=== PATIENT | male | born 1995 | race Caucasian/White ===

== ENCOUNTER 2017-03-17 10:50 | Observation (INO) | payer OTHER ==
[~2017-03-17] VITALS: Ht 180.3 cm; Wt 64.5 kg
[2017-03-17 11:00] VITALS: Ht 180.3 cm; Wt 64.5 kg
[2017-03-17] MEDS ORDERED: ONDANSETRON INJ 2 MG/ML 2 ML VIAL IV STA (11:24)
[2017-03-17] MEDS ORDERED: MoRPHine SULFATE 4 MG/ML 1 ML CARP\\VIAL IV ONE (11:30)
[2017-03-17 11:41] LABS: BASO % 0.2 %; BASO ABS # 0.01 K/uL (0-0.2); EOS % 1.2 %; HEMATOCRIT 41.3 % (42-52); IG% 0.2 %; LYMPH % 14.3 %; LYMPH ABS # 0.83 K/uL (1.2-3.4); MEAN CELL VOLUME 65.6 fL (80-100); MEAN CORPUSCULAR HEMOGLOBIN 20.5 pg (25-34); MEAN CORPUSCULAR HGB CONC 31.2 g/dl (32-36); MONO % 9.1 %; PLATELET COUNT 171 K/uL (130-400)
[2017-03-17] MEDS ORDERED: CEFAZOLIN IV 2,000 MG/60 ML D5W IV ONE (11:45)
[2017-03-17 11:58] LABS: BLOOD UREA NITROGEN 13 mg/dl (7-18); CALCIUM 8.9 mg/dl (8.5-10.1); CARBON DIOXIDE 26 mmol/L (21-32); CHLORIDE 106 mmol/L (98-107); CREATININE 0.67 mg/dl (0.60-1.40); GLUCOSE 99 mg/dl (70-99); POTASSIUM 4.6 mmol/L (3.5-5.1); SODIUM 139 mmol/L (136-145)
[2017-03-17] MEDS ORDERED: CEFAZOLIN SOD 2000 MG in DEXTROSE 5% 50ML IV ONE (12:00)
--- NOTE | 2017-03-17 12:05 | EMERGENCY ROOM VISIT NOTE ---
History First contact with patient: 11:03 Chief Complaint: LACERATION/CUT (NON-SUTURE) Stated Complaint: LEFT HAND LACERATION Nursing Triage Summary: triage note: pt reports he cut his left hand on a saw mill saw at 0930 today. bloody drainage noted - unable to assess cut due to dressing on left hand. History of Present Illness The patient is a 22 year old male who presents to the Emergency Room with complaints of laceration to his left hand that occurred about 30 minutes prior to arrival. The patient is on rash and was working with a large table saw. The patient reached underneath the machine and suffered extensive laceration to his left hand. The patient is up-to-date on his tetanus as this was updated about 8 weeks ago. The patient is not diabetic and is otherwise healthy. He is having difficulty moving his left index finger. The bleeding is controlled with a pressure dressing. The patient has not had previous injury to this hand in the past. He rates his current discomfort a 7/10. Review of Systems More than 10 systems were reviewed and otherwise negative with the exception of history of present illness. Past Medical/Surgical History Medical Problems: (1) Laceration of left hand involving tendon No chronic medical disease Family History No pertinent family history Social History Smoking Status: Never Smoker Housing Status: lives with family Occupation Status: employed Current/Historical Medications No Active Prescriptions or Reported Meds Allergies Coded Allergies: No Known Allergies (Unverified , 03/17/17) Physical Exam Vital Signs Date Time Temp Pulse Resp B/P (MAP) Pulse Ox O2 Delivery O2 Flow Rate FiO2 03/17/17 15:51 37.5 97 16 133/72 99 03/17/17 14:46 75 141/57 100 Room Air 03/17/17 13:16 71 16 117/62 100 03/17/17 11:00 36.9 84 18 133/69 100 Room Air Physical Exam VITALS: Vitals are noted on the nurse's note and reviewed by myself. Vital signs stable. GENERAL: Well-developed, well-nourished, white male in moderate discomfort secondary to his stated complaint., HEART: Regular rate and rhythm without murmurs gallops or rubs. LUNGS: Clear to auscultation bilaterally without wheezes, rales or rhonchi. No retractions or accessory muscle use. MUSCULOSKELETAL: There is an extensive laceration to the dorsal aspect of the left hand. The laceration appears to be a C-shaped flap-like laceration extending from the base of the fourth digit to the base of the thumb. The laceration measures approximately 10 cm in length. There is obvious exposure of the extensor tendon to the left third and left fifth digits. The extensor tendon of the left second digit appears to be lacerated and the patient has decreased ability to extend against resistance of this digit. The joint capsule at the third MTP is exposed. The wound is grossly contaminated with a small arteriole bleed at the most proximal aspect. NEURO: Patient was alert and oriented to person place and time. CN II through XII grossly intact. Medical Decision & Procedures ER Provider Diagnostic Interpretation: LEFT HAND MIN 3 VIEWS ROUTINE CLINICAL HISTORY: 22 years-old Male presenting with Left hand lac. TECHNIQUE: Frontal, oblique, and lateral views of the left hand were obtained. COMPARISON: None. FINDINGS: Sensitivity of the examination is slightly limited due to patient positioning and the presence of an overlying plaster splint. Comminuted extra-articular fracture of the distal phalanx of the third finger. The distal interphalangeal joint of the third finger remains congruent. Distal fracture fragments are displaced 2 to 3 mm the base of the distal phalanx is spared. Additionally, osseous defect of the radial aspect of the mid to distal diaphysis of the second metacarpal subjacent to the presumed laceration, consistent with open fracture. Fracture fragment is not clearly identified. Radiocarpal and intercarpal articulations are grossly intact. IMPRESSION: 1. Open fracture of the mid to distal diaphysis of the radial aspect of the second metacarpal subjacent to the presumed laceration. Fracture fragment not clearly identified. 2. Comminuted extra articular fracture of the distal phalanx of the third finger with 2 to 3 mm of displacement of the distal fracture fragments. Laboratory Results 03/17/17 11:30 Red Blood Count 6.30, Mean Corpuscular Volume 65.6, Mean Corpuscular Hemoglobin 20.5, Mean Corpuscular Hemoglobin Concent 31.2, Neutrophils (%) (Auto) 75.0, Lymphocytes (%) (Auto) 14.3, Monocytes (%) (Auto) 9.1, Eosinophils (%) (Auto) 1.2, Basophils (%) (Auto) 0.2, Neutrophils # (Auto) 4.35, Lymphocytes # (Auto) 0.83, Monocytes # (Auto) 0.53, Eosinophils # (Auto) 0.07, Basophils # (Auto) 0.01 03/17/17 11:30 Test 03/17/17 11:30 03/17/17 15:44 White Blood Count 5.80 K/uL (4.8-10.8) Red Blood Count 6.30 M/uL (4.7-6.1) Hemoglobin 12.9 g/dL (14.0-18.0) Hematocrit 41.3 % (42-52) Mean Corpuscular Volume 65.6 fL (80-100) Mean Corpuscular Hemoglobin 20.5 pg (25-34) Mean Corpuscular Hemoglobin Concent 31.2 g/dl (32-36) Platelet Count 171 K/uL (130-400) Neutrophils (%) (Auto) 75.0 % Lymphocytes (%) (Auto) 14.3 % Monocytes (%) (Auto) 9.1 % Eosinophils (%) (Auto) 1.2 % Basophils (%) (Auto) 0.2 % Neutrophils # (Auto) 4.35 K/uL (1.4-6.5) Lymphocytes # (Auto) 0.83 K/uL (1.2-3.4) Monocytes # (Auto) 0.53 K/uL (0.11-0.59) Eosinophils # (Auto) 0.07 K/uL (0-0.5) Basophils # (Auto) 0.01 K/uL (0-0.2) RDW Standard Deviation 45.6 fL (36.4-46.3) RDW Coefficient of Variation 19.1 % (11.5-14.5) Immature Granulocyte % (Auto) 0.2 % Immature Granulocyte # (Auto) 0.01 K/uL (0.00-0.02) Ovalocytes 1+ Acanthocytes 1+ Anion Gap 7.0 mmol/L (3-11) Est Creatinine Clear Calc Drug Dose 159.1 ml/min Estimated GFR () > 150.0 Estimated GFR (Non- 137.4 BUN/Creatinine Ratio 20.0 (10-20) Calcium Level 8.9 mg/dl (8.5-10.1) Bedside Glucose 89 mg/dl (70-99) Medications Administered Medications (Trade) Dose Ordered Sig/Shira Route Start Time Stop Time Status Last Admin Dose Admin Morphine Sulfate (MoRPHine SULFATE INJ) 4 mg NOW ONCE IV 03/17/17 11:30 03/17/17 11:31 DC 03/17/17 11:35 4 MG Ondansetron HCl (Zofran Inj) 4 mg NOW STAT IV 03/17/17 11:24 03/17/17 11:27 DC 03/17/17 11:34 4 MG Cefazolin Sodium 2000 mg/Dextrose 60 ml @ 120 mls/hr 1200 ONCE IV 03/17/17 12:00 03/17/17 12:29 DC 03/17/17 11:55 120 MLS/HR Bacitracin (Bacitracin Inj) 50,000 units STK-MED ONCE .ROUTE 03/17/17 15:54 03/17/17 15:55 DC 03/17/17 15:54 50,000 UNITS Bacitracin (Bacitracin Inj) 50,000 units STK-MED ONCE .ROUTE 03/17/17 16:31 03/17/17 16:32 DC 03/17/17 16:31 50,000 UNITS Bupivacaine HCl (Marcaine 0.5% MPF Inj) 30 ml STK-MED ONCE .ROUTE 03/17/17 17:02 03/17/17 17:03 DC 03/17/17 17:02 19 ML ED Course Physical exam and history were performed. Nursing notes and EMR were reviewed. Patient appears to have suffered extensive laceration to his left hand with a power table saw just prior to arrival. He last ate around 5 AM this morning and he is up-to-date on his tetanus. IV access was established and basic labs were obtained. The patient was given IV morphine, IV Zofran, and IV Ancef. X- rays concerning for an open fracture of the left second metacarpal, which does correlate with the exam. The case was discussed with my attending physician, Dr Ace, as well as the on -call orthopedist, Dr. Sylvester. Dr. Sylvester will make arrangements for his partner Dr. Herndon to evaluate the patient. Dr Herndon was able to evaluate the patient here in the emergency department. The patient will be taken to the operating room for washout and closure. Please see Dr Herndon's dictation for further patient course and disposition. The patient did remain in stable condition until his transfer to the operating room suite. The chart was completed utilizing [employer] Speech Voice Recognition Software. Grammatical errors, random word insertions, pronoun errors, and incomplete sentences are an occasional consequence of this system due to software limitations, ambient noise, and hardware issues. Any formal questions or concerns about the content, text, or information contained within the body of this dictation should be directly addressed to the provider for clarification. . Medical Decision Differential diagnosis includes, but is not limited to: Sprain, strain, fracture , dislocation, subluxation, contusion, laceration, open fracture, tendon injury , vascular injury, and others Impression Primary Impression: Laceration of left hand involving tendon Departure Information Dispostion Being Evaluated By Surgeon Condition GOOD Prescriptions No Active Prescriptions or Reported Meds Referrals No Doctor, Assigned (PCP) Patient Instructions [facility]
[2017-03-17 12:08] LABS: ACANTHOCYTES 1+; COMPLETE YES; OVALOCYTES 1+
--- NOTE | 2017-03-17 12:20 | DIAGNOSTIC IMAGING REPORT ---
LEFT HAND MIN 3 VIEWS ROUTINE CLINICAL HISTORY: 22 years-old Male presenting with Left hand lac. TECHNIQUE: Frontal, oblique, and lateral views of the left hand were obtained. COMPARISON: None. FINDINGS: Sensitivity of the examination is slightly limited due to patient positioning and the presence of an overlying plaster splint. Comminuted extra-articular fracture of the distal phalanx of the third finger. The distal interphalangeal joint of the third finger remains congruent. Distal fracture fragments are displaced 2 to 3 mm the base of the distal phalanx is spared. Additionally, osseous defect of the radial aspect of the mid to distal diaphysis of the second metacarpal subjacent to the presumed laceration, consistent with open fracture. Fracture fragment is not clearly identified. Radiocarpal and intercarpal articulations are grossly intact. IMPRESSION: 1. Open fracture of the mid to distal diaphysis of the radial aspect of the second metacarpal subjacent to the presumed laceration. Fracture fragment not clearly identified. 2. Comminuted extra articular fracture of the distal phalanx of the third finger with 2 to 3 mm of displacement of the distal fracture fragments. Electronically signed by: Mitchell Jaffe 03/17/2017 12:19 PM Dictated Date/Time: 03/17/2017 12:14 PM
--- NOTE | 2017-03-17 15:03 | History and Physical ---
History & Physical Date Mar 17, 2017. Chief Complaint Left hand pain and laceration History of Present Illness The patient is a 22 year old male with complaints of left hand pain , post saw laceration. Past Medical/Surgical History NO: htn, copd, ca, dm Additional History Hepatic Disease: No Endocrine Disorder: No Kidney Disease: No Hypertension: No Heart Disease: No Bleeding Tendencies: No Infectious Diseases: No Allergies Coded Allergies: No Known Allergies (Unverified , 03/17/17) Home Medications No Active Prescriptions or Reported Meds Physical Examination Skin: warm/dry, no rash Eyes: normal inspection, EOMI ENT: normal ENT inspection, pharynx normal Neck: supple, trachea midline Respiratory/Chest: lungs clear Cardiovascular: regular rate, rhythm Abdomen / GI: normal bowel sounds Back: normal inspection Extremities: normal inspection, normal range of motion, + pertinent finding ( Large dorsal radial laceration left hand, good pulses, slow to extend index finger) Diagnosis Healthy 22 year old Harjinder male with Dorsal , radial laceration to his left hand. possible nerve and tendon involvement ASA Classification: ASA Class I Plan of Treatment Iv fluids, antibiotics -done. To the OR shortly for Irragation , debridement, repair left hand. Possible tendon repair
[2017-03-17] MEDS ORDERED: FENTANYL CITRATE INJ 50 MCG/1 ML 2 ML VIAL ONE ×2 (15:13→15:14)
[2017-03-17] MEDS ORDERED: LIDOCAINE HCL 2% 2 ML VIAL (20MG/ML) ONE (15:13)
[2017-03-17] MEDS ORDERED: ONDANSETRON INJ 2 MG/ML 2 ML VIAL ONE ×2 (15:13→17:01)
[2017-03-17] MEDS ORDERED: GLYCOPYRROLATE INJ 0.2 MG/ML VIAL ONE (15:13)
[2017-03-17] MEDS ORDERED: SUCCINYLCHOLINE CHLORIDE 20 MG/ML 10 ML VIAL IV ONE (15:13)
[2017-03-17] MEDS ORDERED: PROPOFOL IV EMULSION 10 MG/ML 20 ML VIAL IV ONE (15:13)
[2017-03-17] MEDS ORDERED: DEXAMETHASONE SOD INJ 4 MG/ML VIAL ONE (15:13)
[2017-03-17] MEDS ORDERED: NEOSTIGMINE METHYLSULFATE 5 MG/5 ML SYR ONE (15:13)
[2017-03-17] MEDS ORDERED: ROCURONIUM BROMIDE 10 MG/ML 5 ML VIAL ONE (15:13)
[2017-03-17] MEDS ORDERED: MIDAZOLAM HCL 1 MG/ML 2ML VIAL ONE (15:14)
[2017-03-17] MEDS ORDERED: FLUMAZENIL 0.1 MG/1 ML 10 ML VIAL IV PRN (15:45)
[2017-03-17] MEDS ORDERED: LABETALOL HCL IV 5 MG/ML 20ML IV PRN (15:45)
[2017-03-17] MEDS ORDERED: MEPERIDINE HCL 25 MG/ML CARP IV PRN (15:45)
[2017-03-17] MEDS ORDERED: PHENYLEPHRINE 100MCG/ML 5ML SYR IV PRN (15:45)
[2017-03-17] MEDS ORDERED: EpHEDrine SULFATE INJ 50 MG/ML AMP IV PRN (15:45)
[2017-03-17] MEDS ORDERED: NALOXONE HCL 0.4 MG/1 ML VIAL/CARP IV PRN (15:45)
[2017-03-17] MEDS ORDERED: ATROPINE SULFATE 0.1 MG/ML 5ML SYR IV PRN (15:45)
[2017-03-17] MEDS ORDERED: HYDROmorphone INJ 2 MG/ML SYR/VIAL IV PRN ×2 (15:45→17:45)
[2017-03-17] MEDS ORDERED: FENTANYL CITRATE INJ 50 MCG/1 ML 2 ML VIAL IV PRN (15:45)
[2017-03-17] MEDS ORDERED: ONDANSETRON INJ 2 MG/ML 2 ML VIAL IV PRN ×2 (15:45→17:45)
[2017-03-17] MEDS ORDERED: BACITRACIN 50000 UNIT VIAL ONE ×2 (15:54→16:31)
[2017-03-17] MEDS ORDERED: BUPIVACAINE 0.5 % 5 MG/1 ML MPF 30ML VIAL ONE (17:02)
--- NOTE | 2017-03-17 17:42 | [facility] Operative Report ---
Operative Report Operative Date Mar 17, 2017. Pre-Operative Diagnosis Large dorsal radial laceration left hand Post-Operative Diagnosis Same plus extensor tendon index finger laceration , and open fracture left index metacarpal Procedure(s) Performed Left Hand Laceration Exploration and repair, and repait of extensor tendon laceration index finger; irragation and drebridement Surgeon Dr Herndon Python Django Developer Surgeon(s) Cindy BLANCHARD Estimated Blood Loss 30ml Findings open fracture; large soft tissue defect; extensor tendon laceration Specimens none per surgeon Complication(s) None Disposition Recovery Room / PACU Indications Open fracture left hand. Index metacarpal and the laceration of the extensor mechanism or so aspect index finger soft tissue defect. Description of Procedure She was taking to the operating room general intubated anesthetic provided the patient tourniquet applied to his left upper extremity scrubbed first with Betadine and Betadine brush he was draped off sterile and irrigate him again.. Was then prepped with ChloraPrep. The tourniquet was inflated 250 mg millimeters first debrided the wound a lot of soft tissue maceration and devitalization. We also debrided the skin surface on the on the dorsal compartment. Try to get rid of any type of questionable soft tissue. We then irrigated with approximately 3000 mL of fluid chair curetting out the index metacarpal. Follow soft tissue of a type of areal. Then closed the next metacarpal extensor mechanism. The extensor indices was completely torn in half and cut in half. This completely using a modified Bennell-type stitch suture reinforced with 4-0 nylon suture. The commonest tendon was somewhat questionable. I was able to do this as well to the index extensor tendon and felt the repair was support. The skin was closed with interrupted 4-0 nylon suture in a mattress manner. Able to get the skin closed without any undue stress. All radial-based laceration was also closed after debridement and closed with 4- 0 nylon suture. The graft the tourniquet was deflated sterile pressure dressing applied applied in neutral position and extubated to PACU improved stable condition. Sponge and needle count correct at the close of procedure surgeon Debbie Vargas PAC. Thank you I attest to the content of the Intraoperative Record and any orders documented therein. Any exceptions are noted below.
[2017-03-17] MEDS ORDERED: KETOROLAC TROMETHAMINE 30 MG/ML VIAL IV. PRN (17:45)
[2017-03-17] MEDS ORDERED: OXYCODONE/ACETAMINOPHEN 5-325 TAB PO PRN (17:45)
[2017-03-17] MEDS ORDERED: DiphenhydrAMINE HCL 50 MG/ML VIAL IV PRN (17:45)
[2017-03-17] MEDS ORDERED: ALUMINUM/MAGNESIUM SUSP 30 ML UDC PO PRN (17:45)
[2017-03-17] MEDS ORDERED: METOCLOPRAMIDE HCL INJ 5 MG/ML 2 ML VIAL IV PRN (17:45)
--- NOTE | 2017-03-17 18:13 | Anesthesiology Progress Note ---
Anesthesia Post Op Note Date & Time Mar 17, 2017 at 18:12 Vital Signs Pain Intensity: 0 Vital Signs Past 12 Hours Date Time Temp Pulse Resp B/P (MAP) Pulse Ox O2 Delivery O2 Flow Rate FiO2 03/17/17 18:10 36.6 66 16 126/81 100 Room Air 03/17/17 18:00 87 16 124/77 100 Oxymask 3 03/17/17 17:50 76 16 144/89 100 Oxymask 5 03/17/17 17:40 90 14 136/79 100 Oxymask 10 03/17/17 17:34 36.1 77 14 131/95 93 Oxymask 10 03/17/17 15:51 37.5 97 16 133/72 99 03/17/17 14:46 75 141/57 100 Room Air 03/17/17 13:16 71 16 117/62 100 03/17/17 11:00 36.9 84 18 133/69 100 Room Air Notes Mental Status: alert / awake / arousable, participated in evaluation Pt Amnestic to Procedure: Yes Nausea / Vomiting: adequately controlled Pain: adequately controlled Airway Patency, RR, SpO2: stable & adequate BP & HR: stable & adequate Hydration State: stable & adequate Anesthetic Complications: no major complications apparent
[2017-03-17 18:30] VITALS: BP 118/67; PULSE 76; TEMP 37; O2SAT 100
[2017-03-17 19:02] VITALS: BP 116/66; PULSE 64; TEMP 36.9; O2SAT 100
[2017-03-17 19:30] VITALS: BP 118/58; PULSE 69; TEMP 37.1; O2SAT 100
[2017-03-17] MEDS: SODIUM CHLORIDE 0.9% 1000ML 1,000 ML IV SCH (19:37)
[2017-03-17] MEDS: CEFAZOLIN IV 2,000 MG in DEXTROSE 5% 50ML 50 ML IV SCH (19:55)
[2017-03-17] MEDS ORDERED: IV FLUIDS COMPLETED PRN (20:15)
[2017-03-17 20:30] VITALS: BP 119/66; PULSE 71; TEMP 36.8; O2SAT 98
[2017-03-17] MEDS: DOCUSATE SODIUM 100 MG CAP PO SCH (20:46)
[2017-03-17] MEDS: RANITIDINE HCL 150 MG TAB PO SCH (20:46)
[2017-03-17] MEDS ORDERED: GENTAMICIN INJ 80 MG in DEXTROSE 5% 100ML 100 ML IV ONE (21:00)
[2017-03-17 21:31] VITALS: BP 118/65; PULSE 80; TEMP 37; O2SAT 99
[2017-03-17 23:21] VITALS: BP 121/61; PULSE 80; TEMP 36.8; O2SAT 100
[2017-03-18] MEDS: CEFAZOLIN IV 2,000 MG in DEXTROSE 5% 50ML 50 ML IV SCH ×2 (01:54→08:24)
[2017-03-18 03:55] VITALS: BP 106/63; PULSE 82; TEMP 37; O2SAT 98
[2017-03-18] MEDS: SODIUM CHLORIDE 0.9% 1000ML 1,000 ML IV SCH (06:04)
[2017-03-18 07:40] VITALS: BP 110/74; PULSE 66; TEMP 37.1; O2SAT 98
[2017-03-18 08:04] VITALS: PULSE 70; TEMP 36.8
[2017-03-18 08:14] VITALS: O2SAT 98
--- NOTE | 2017-03-18 08:18 | Discharge Instructions ---
Discharge Instructions Date of Service Mar 18, 2017. Admission Reason for Admission: Laceration Of Left Hand Involving Tendon Discharge Discharge Diagnosis / Problem: same Discharge Goals Goal(s): Improve function Activity Recommendations Activity Limitations: as noted below Exercise/Sports Limitations: until after follow-up appointment Shower/Bathe: keep incision dry Driving or Machine Use: No use of left hand . Instructions / Follow-Up Instructions / Follow-Up He will be discharged later today approximately noon on March 18. He is to maintain his dressing as this is not to change it not to clean it keep splint in place. His follow-up will be in the office [facility] this coming FridayMarch 21. Patient to be discharged home on Keflex as an antibiotic he can take Motrin and Tylenol for pain sling should be provided as well. Current Hospital Diet Patient's current hospital diet: Regular Diet Discharge Diet Recommended Diet: Regular Diet Procedures Procedures Performed: Left Hand Laceration Exploration and repair, and repait of extensor tendon laceration index finger; irragation and drebridement Pending Studies Studies pending at discharge: no Medical Emergencies . Who to Call and When: Medical Emergencies: If at any time you feel your situation is an emergency, please call 911 immediately. . Non-Emergent Contact Non-Emergency issues call your: Primary Care Provider Call Non-Emergent contact if: you have any medication questions . "Provider Documentation" section prepared by Rober Herndon. . VTE Core Measure Inpt VTE Proph given/why not?: Treatment not indicated
--- NOTE | 2017-03-18 08:50 | Anesthesiology Progress Note ---
Anesthesia Post Op Note Date & Time Mar 18, 2017 at 08:49 Vital Signs Pain Intensity: 0.0 Vital Signs Past 12 Hours Date Time Temp Pulse Resp B/P (MAP) Pulse Ox O2 Delivery O2 Flow Rate FiO2 03/18/17 08:14 98 Room Air 03/18/17 08:04 03/18/17 07:40 37.1 66 16 110/74 (86) 98 Room Air 03/18/17 03:55 37.0 82 16 106/63 (77) 98 Room Air 03/17/17 23:21 36.8 80 16 121/61 (81) 100 Room Air 03/17/17 21:31 37.0 80 18 118/65 (82) 99 Room Air Notes Mental Status: alert / awake / arousable, participated in evaluation Pt Amnestic to Procedure: Yes Nausea / Vomiting: adequately controlled Pain: adequately controlled Airway Patency, RR, SpO2: stable & adequate BP & HR: stable & adequate Hydration State: stable & adequate Anesthetic Complications: no major complications apparent
[2017-03-18] MEDS: DOCUSATE SODIUM 100 MG CAP PO SCH (09:00)
[2017-03-18] MEDS: RANITIDINE HCL 150 MG TAB PO SCH (09:03)
[2017-03-18 11:26] VITALS: BP 118/76; PULSE 60; TEMP 37.2; O2SAT 100
[2017-03-18 12:23] VITALS: BP 118/76; PULSE 60; TEMP 37.2; O2SAT 100
--- NOTE | 2017-04-04 08:31 | DISCHARGE SUMMARY ---
Andria was admitted to my service the day before for traumatic laceration to his hand. He was taken to surgery, repaired and stabilized. He was discharged home on the in improved and stable condition without complications. He has medication for pain and an antibiotic and followup appointment.
== END 2017-03-18 12:30 | disposition home or self-care (01) ==
LOC: C.EDB 10:53 → C.MSN 17:44 → ENRESERV 18:17 → CANRESERV 18:17 → ENRESERV 18:32
PROVIDERS: ADMIT Orthopaedic Surgery Orthopaedic Surgery of the Spine; ATTEND Orthopaedic Surgery Orthopaedic Surgery of the Spine
DX: S66.321A Laceration of extensor muscle, fascia and tendon of left index finger at wrist and hand level, initial encounter (principal); S62.202A Unspecified fracture of first metacarpal bone, left hand, initial encounter for closed fracture; W31.2XXA Contact with powered woodworking and forming machines, initial encounter